=== PATIENT | female | born 1990 | race Caucasian/White ===

== ENCOUNTER 2017-09-03 13:48 | Emergency (ER) | payer SELFPAY ==
[~2017-09-03] VITALS: Ht 157.5 cm; Wt 108.9 kg
[2017-09-03 14:25] VITALS: BP 123/88
[2017-09-03] MEDS ORDERED: AMOX875T PO (14:42)
--- NOTE | 2017-09-03 15:37 | PHYS DOC ---
Past Medical History Past Medical History: No Pertinent History Past Surgical History: Appendectomy, Tubal ligation Alcohol Use: None Drug Use: None Adult General Chief Complaint Chief Complaint: EARACHE/EAR PAIN HPI HPI Patient is a 27 year old female who presents with pain to the right ear is been worsening over the past week. She states that she also has some decreased hearing in that side. Her left ear is completely normal. She denies fever, dizziness or headache. She states that nothing has been resolving this problem. Review of Systems Review of Systems Constitutional: Denies fever or chills [] Eyes: Denies change in visual acuity, redness, or eye pain [] HENT: History of present illness Respiratory: Denies cough or shortness of breath [] Cardiovascular: No additional information not addressed in HPI [] Neurologic: Denies headache, focal weakness or sensory changes [] Endocrine: Denies polyuria or polydipsia [] All other systems were reviewed and found to be within normal limits, except as documented in this note. Allergies Allergies Allergies Coded Allergies Type Severity Reaction Last Updated Verified No Known Drug Allergies 01/08/16 No Physical Exam Physical Exam Constitutional: Well developed, well nourished, no acute distress, non-toxic appearance. [] HENT: Normocephalic, atraumatic, right TM is erythematous, there is also some erythema extending into the right canal, left TM is normal, oropharynx moist, no oral exudates, nose normal. [] Eyes: PERRLA, EOMI, conjunctiva normal, no discharge. [] Neck: Normal range of motion, no tenderness, supple, no stridor. [] Cardiovascular:Heart rate regular rhythm, no murmur [] Lungs & Thorax: Bilateral breath sounds clear to auscultation [] Neurologic: Alert and oriented X 3, normal motor function, normal sensory function, no focal deficits noted. [] Psychologic: Affect normal, judgement normal, mood normal. [] Current Patient Data Vital Signs Vital Signs Date Time Temp Pulse Resp B/P (MAP) Pulse Ox O2 Delivery O2 Flow Rate FiO2 09/03/17 14:25 97.8 98 16 98 Room Air 97.8 EKG EKG [] Radiology/Procedures Radiology/Procedures [] Course & Med Decision Making Course & Med Decision Making Pertinent Labs and Imaging studies reviewed. (See chart for details) []1. Otitis media You've been placed on amoxicillin. Please take this antibiotic until it is gone. Follow up with your primary care provider in 3-4 days if not improving or return to the ED if worsening. You may use ibuprofen or Tylenol for pain. Hot compresses might improve the pain on your right ear as well. Shakira Disclaimer Dragon Disclaimer This electronic medical record was generated, in whole or in part, using a voice recognition dictation system. Departure Departure Impression: Primary Impression: Otitis media Disposition: 01 HOME, SELF-CARE Condition: STABLE Patient Instructions: Otitis Media, Adult Additional Instructions: Please take your antibiotic as prescribed. Follow-up with your primary care provider as needed or return to the ED if worsening. You may use ibuprofen or Tylenol for pain or fever. Scripts Amoxicillin (AMOXICILLIN) 875 Mg Tablet 1 TAB PO BID, #20 TAB Prov: NUHA MCCORD APRN 09/03/17 NUHA MCCORD APRN Sep 03, 2017 15:37
== END 2017-09-03 14:50 | disposition home or self-care (01) ==
LOC: ER 13:48
DX: H66.91 Otitis media, unspecified, right ear (principal)
CPT/HCPCS: 99283

== ENCOUNTER 2017-11-12 15:56 | Inpatient (IN) | payer OTHER ==
[2017-11-12 16:26] LABS: ADD MAN DIFF? NO
[2017-11-12 16:30] LABS: BASO % 0 % (0-3); EOS # 0.4 x10^3/uL (0.0-0.7); EOS % 4 % (0-3); HEMATOCRIT 41.6 % (36.0-47.0); HEMOGLOBIN 14.1 g/dL (12.0-15.5); LYMPH # 1.7 x10^3/uL (1.0-4.8); LYMPH % 20 % (24-48); MEAN CORPUSCULAR HEMOGLOBIN 29 pg (25-35); MEAN CORPUSCULAR HGB CONC 34 g/dL (31-37); MEAN CORPUSCULAR VOLUME 86 fL (79-100); MONO # 0.4 x10^3/uL (0.0-1.1); MONO % 5 % (0-9); NEUT # 5.8 x10^3uL (1.8-7.7); NEUT % 70 % (31-73); PLATELET COUNT 299 x10^3/uL (140-400); RED BLOOD COUNT 4.85 x10^6/uL (3.50-5.40); RED CELL DISTRIBUTION WIDTH 12.8 % (11.5-14.5); WHITE BLOOD COUNT 8.3 x10^3/uL (4.0-11.0)
[2017-11-12] MEDS: MORPHINE SULFATE 4 MG/ML DISP.SYRIN. IV/SQ ×4 (16:39→18:52)
[2017-11-12 16:44] LABS: PROTHROMBIN TIME PATIENT 12.4 SEC (11.7-14.0)
[2017-11-12 16:48] LABS: URINE HCG POC HCG NEGATIVE (Negative)
[2017-11-12 16:50] LABS: ANION GAP 13 (6-14); BLOOD UREA NITROGEN 11 mg/dL (7-20); CALCIUM 8.5 mg/dL (8.5-10.1); CARBON DIOXIDE 24 mmol/L (21-32); CHLORIDE 103 mmol/L (98-107); CREATININE 0.9 mg/dL (0.6-1.0); GFR 74.6; GLUCOSE 97 mg/dL (70-99); POTASSIUM 3.6 mmol/L (3.5-5.1); SODIUM 140 mmol/L (136-145)
[2017-11-12 16:57] LABS: ALBUMIN 3.5 g/dL (3.4-5.0); ALK PHOS 102 U/L (46-116); ALT (SGPT) 32 U/L (14-59); AST (SGOT) 20 U/L (15-37); DIRECT BILIRUBIN 0.1 mg/dL (0.0-0.2); LIPASE 163 U/L (73-393); MAGNESIUM 1.9 mg/dL (1.8-2.4); TOTAL BILIRUBIN 0.3 mg/dL (0.2-1.0); TOTAL PROTEIN 7.6 g/dL (6.4-8.2)
[2017-11-12 16:59] LABS: TROPONINI < 0.017 ng/mL (0.000-0.055)
[2017-11-12 16:59] LABS: BILIRUBIN,URINE SMALL (NEG); CLARITY,URINE CLEAR; COLOR,URINE YELLOW; GLUCOSE,URINE NEGATIVE (NEG); NITRITE,URINE NEGATIVE (NEG); PH,URINE 5.5; PROTEIN,URINE 30 mg/dL (NEG-TRACE)
[2017-11-12 17:03] LABS: CREATINE KINASE 75 U/L (26-192)
[2017-11-12 17:03] LABS: NT-PRO BNP 9 pg/mL (0-124)
[2017-11-12 17:04] LABS: THYROID STIM HORMONE (TSH) 1.818 uIU/mL (0.358-3.74)
[2017-11-12 17:05] LABS: BARBITURATES NEG (NEG); BENZODIAZEPINES NEG (NEG); CANNABINOIDS NEG (NEG); CKMB INDEX 0.7 % (0-4); CKMB MASS < 0.5 ng/mL (0.0-3.6); COCAINE NEG (NEG); METHADONE NEG (NEG); OPIATES NEG (NEG); PHENCYCLIDINE NEG (NEG)
[2017-11-12] MEDS ORDERED: fentaNYL PF VIAL 100 MCG/2 ML VIAL (17:05)
[2017-11-12 17:07] LABS: AMPHETAMINE/METHAMPHETAMINE NEG (NEG); ETHANOL, URINE NEG (NEG)
[2017-11-12] MEDS ORDERED: ONDANSETRON PF 4 MG/2 ML VIAL. (17:11)
[2017-11-12] MEDS: ONDANSETRON PF 4 MG/2 ML VIAL. IV (17:14)
[2017-11-12] MEDS: fentaNYL PF VIAL 100 MCG/2 ML VIAL IV ×3 (17:15→23:43)
[2017-11-12 17:20] LABS: BACTERIA,URINE MODERATE /HPF (0-FEW); SQUAMOUS EPITHELIAL CELL,UR OCC /LPF; YEAST,URINE PRESENT /HPF
[2017-11-12] MEDS: LIDO:MAALOX:DONNATAL 1:1:1 15 ML SINGLE DOSE SWSW (17:29)
[2017-11-12] MEDS: IV NORMAL SALINE 1000ML BAG 1,000 ML IV (17:40)
[2017-11-12] MEDS: IOHEXOL 300 MG/ML 100ML VIAL. IV (17:53)
[2017-11-12] MEDS ORDERED: CONTRAST GIVEN MC (18:00)
[2017-11-12] MEDS: PROMETHAZINE 25 MG in IV NORMAL SALINE 50ML 50 ML IV (20:05)
[2017-11-12 22:45] LABS: TROPONINI < 0.017 ng/mL (0.000-0.055)
[2017-11-12] MEDS: ENOXAPARIN 40 MG/0.4 ML SYRINGE. SQ (23:35)
[2017-11-12] MEDS: cefTRIAXone IV Push 1 GM VIAL. IVP (23:35)
[2017-11-13] MEDS ORDERED: INFLUENZA VAX SCREEN BY RX. MC (01:30)
[2017-11-13 01:35] LABS: ADD MAN DIFF? NO
[2017-11-13 02:26] LABS: ALBUMIN/GLOBULIN RATIO 0.8 (1.0-1.7); ALK PHOS 118 U/L (46-116); ALT (SGPT) 111 U/L (14-59); ANION GAP 11 (6-14); AST (SGOT) 101 U/L (15-37); BLOOD UREA NITROGEN 8 mg/dL (7-20); BUN/CREATININE RATIO 11 (6-20); CALCIUM 8.1 mg/dL (8.5-10.1); CARBON DIOXIDE 25 mmol/L (21-32); CHLORIDE 105 mmol/L (98-107); CREATININE 0.7 mg/dL (0.6-1.0); GFR 99.6; GLUCOSE 100 mg/dL (70-99); POTASSIUM 3.8 mmol/L (3.5-5.1); SODIUM 141 mmol/L (136-145); TOTAL BILIRUBIN 0.4 mg/dL (0.2-1.0); TOTAL PROTEIN 6.7 g/dL (6.4-8.2)
[2017-11-13 03:10] LABS: TROPONINI < 0.017 ng/mL (0.000-0.055)
[2017-11-13 03:19] LABS: BASO % 0 % (0-3); EOS # 0.1 x10^3/uL (0.0-0.7); EOS % 1 % (0-3); HEMATOCRIT 38.3 % (36.0-47.0); HEMOGLOBIN 12.8 g/dL (12.0-15.5); LYMPH # 1.1 x10^3/uL (1.0-4.8); LYMPH % 14 % (24-48); MEAN CORPUSCULAR HEMOGLOBIN 29 pg (25-35); MEAN CORPUSCULAR HGB CONC 33 g/dL (31-37); MEAN CORPUSCULAR VOLUME 86 fL (79-100); MONO # 0.4 x10^3/uL (0.0-1.1); MONO % 4 % (0-9); NEUT # 6.5 x10^3uL (1.8-7.7); NEUT % 81 % (31-73); PLATELET COUNT 256 x10^3/uL (140-400); RED BLOOD COUNT 4.44 x10^6/uL (3.50-5.40); WHITE BLOOD COUNT 8.1 x10^3/uL (4.0-11.0)
[2017-11-13] MEDS: fentaNYL PF VIAL 100 MCG/2 ML VIAL IV ×5 (04:34→17:35)
[2017-11-13] MEDS: LACTOBACILLUS RHAMNOSUS GG 1 CAPSULE. PO ×2 (08:54→19:34)
[2017-11-13] MEDS: FLU VACC QS2017-18 (36MOS+)/PF 0.5 ML SYRINGE. VAX IM (08:55)
[2017-11-13] MEDS: ONDANSETRON PF 4 MG/2 ML VIAL. IV (10:00)
[2017-11-13] MEDS: PANTOPRAZOLE 40 MG TABLET.DR. PO (11:27)
[2017-11-13] MEDS ORDERED: ACETAMINOPHEN 500 MG TABLET PO (17:15)
[2017-11-13] MEDS ORDERED: ONDANSETRON PF 4 MG/2 ML VIAL. IV (17:30)
[2017-11-13] MEDS ORDERED: fentaNYL PF VIAL 100 MCG/2 ML VIAL IV (19:30)
[2017-11-13] MEDS: oxyCODONE/APAP 5/325 1 TAB TABLET PO ×2 (19:34→23:30)
[2017-11-13] MEDS: ZOLPIDEM 5 MG TABLET. PO (19:34)
[2017-11-13] MEDS: ENOXAPARIN 40 MG/0.4 ML SYRINGE. SQ (21:00)
[2017-11-13] MEDS: cefTRIAXone IV Push 1 GM VIAL. IVP (21:51)
[2017-11-14] MEDS: oxyCODONE/APAP 5/325 1 TAB TABLET PO ×4 (04:54→21:36)
[2017-11-14 06:09] LABS: ADD MAN DIFF? NO
[2017-11-14 06:21] LABS: BASO % 1 % (0-3); EOS # 0.4 x10^3/uL (0.0-0.7); EOS % 9 % (0-3); HEMOGLOBIN 12.7 g/dL (12.0-15.5); LYMPH # 1.3 x10^3/uL (1.0-4.8); LYMPH % 32 % (24-48); MEAN CORPUSCULAR HEMOGLOBIN 30 pg (25-35); MEAN CORPUSCULAR HGB CONC 34 g/dL (31-37); MEAN CORPUSCULAR VOLUME 87 fL (79-100); MONO # 0.4 x10^3/uL (0.0-1.1); MONO % 10 % (0-9); NEUT % 48 % (31-73); PLATELET COUNT 235 x10^3/uL (140-400); RED BLOOD COUNT 4.27 x10^6/uL (3.50-5.40); RED CELL DISTRIBUTION WIDTH 13.2 % (11.5-14.5); WHITE BLOOD COUNT 4.1 x10^3/uL (4.0-11.0)
[2017-11-14 06:48] LABS: ALBUMIN 2.9 g/dL (3.4-5.0); ALBUMIN/GLOBULIN RATIO 0.8 (1.0-1.7); ALK PHOS 103 U/L (46-116); ALT (SGPT) 78 U/L (14-59); ANION GAP 8 (6-14); AST (SGOT) 36 U/L (15-37); BLOOD UREA NITROGEN 12 mg/dL (7-20); BUN/CREATININE RATIO 15 (6-20); CALCIUM 8.6 mg/dL (8.5-10.1); CARBON DIOXIDE 26 mmol/L (21-32); CHLORIDE 107 mmol/L (98-107); CREATININE 0.8 mg/dL (0.6-1.0); GFR 85.4; GLUCOSE 89 mg/dL (70-99); POTASSIUM 3.8 mmol/L (3.5-5.1); SODIUM 141 mmol/L (136-145); TOTAL BILIRUBIN 0.3 mg/dL (0.2-1.0); TOTAL PROTEIN 6.6 g/dL (6.4-8.2)
[2017-11-14 09:19] LABS: C DIFF BY PCR Negative (Negative)
[2017-11-14 10:30] LABS: HCV ANTIBODY <0.1 s/co ratio (0.0-0.9); HEP A IGM ABDY Negative (Negative); HEP B SURFACE AG Negative (Negative)
[2017-11-14] MEDS: ENOXAPARIN 40 MG/0.4 ML SYRINGE. SQ ×2 (12:41→21:11)
[2017-11-14] MEDS: PANTOPRAZOLE 40 MG TABLET.DR. PO (12:41)
[2017-11-14] MEDS: LACTOBACILLUS RHAMNOSUS GG 1 CAPSULE. PO ×2 (12:41→21:11)
[2017-11-14] MEDS: ZOLPIDEM 5 MG TABLET. PO (21:11)
[2017-11-15] MEDS: PANTOPRAZOLE 40 MG TABLET.DR. PO (07:32)
[2017-11-15] MEDS: LACTOBACILLUS RHAMNOSUS GG 1 CAPSULE. PO (08:50)
[2017-11-15] MEDS: ENOXAPARIN 40 MG/0.4 ML SYRINGE. SQ (08:52)
== END 2017-11-15 12:16 | disposition home or self-care (01) | DRG 690 ==
LOC: ER 15:56 → 5 NORTH 19:15
DX: N39.0 Urinary tract infection, site not specified (principal); E66.01 Morbid (severe) obesity due to excess calories; K76.0 Fatty (change of) liver, not elsewhere classified; Z68.41 Body mass index [BMI] 40.0-44.9, adult; R74.0 Nonspecific elevation of levels of transaminase and lactic acid dehydrogenase [LDH]; Z90.49 Acquired absence of other specified parts of digestive tract; Z98.51 Tubal ligation status
CPT/HCPCS: 36415; 71045; 74177; 74181; 76705; 80048; 80053; 80074; 80076; 80307; 81001; 81025; 82553; 83690; 83735; 83880; 84443; 84484; 85025; 85610; 87045; 87086; 87324; 90686; 93005; J0696; J1650; J2270; J2405; J2550; J3010; J7030; Q9967